=== PATIENT | female | born 2000 | race African-American/Black ===

== ENCOUNTER 2021-03-24 07:30 | Emergency (ER) | payer BC, SELFPAY ==
[2021-03-24 07:27] VITALS: BP 121/90; PULSE 69; RESP 17; TEMP 36.3; O2SAT 100
--- NOTE | 2021-03-24 07:42 | ECG_ITS ---
Measurements Intervals [place] Rate: 69 P: -5 FL: 157 QRS: 47 QRSD: 84 T: 8 QT: 414 QTc: 444 Interpretive Statements SINUS RHYTHM WITH SINUS ARRHYTHMIA INCOMPLETE RIGHT BUNDLE BRANCH BLOCK BORDERLINE ECG Electronically Signed On 03-24-2021 7:49:44 CDT by Cholo Herbert D.O.
[2021-03-24] MEDS: LORazepam INJ (*CRX) 2 MG/ML VIAL 1 MG IV PUSH (08:43)
--- NOTE | 2021-03-24 08:49 | ED.GENADULT ---
HPI - General Adult General Chief complaint: Unspecified Stated complaint: global numbness 25 minutes Time Seen by Provider: 03/24/21 08:22 Source: patient, EMS and RN notes reviewed Mode of arrival: EMS Limitations: no limitations History of Present Illness HPI narrative: Patient arrived to the ED by ambulance from work with a chief complaint of numbness all over from head to toes and spasm and cramps of the fingers with difficulty moving them and hyperventilation. Started 2-hour prior to arrival to the emergency room. Patient reports a lot of stress lately. Patient denies any fever, chills, nausea, vomiting, chest pain, shortness of breath or abdominal pain. Related Data Allergies Allergy/AdvReac Type Severity Reaction Status Date / Time No Known Allergies Allergy Verified 03/24/21 07:40 Review of Systems Review of Systems: CONSTITUTIONAL: Denies fever, chills, or sweats. EYES: Denies visual changes, redness, or discharge. ENT: Denies rhinorrhea, congestion, sore throat, or otalgia. CARDIOVASCULAR: Denies chest pain, palpitations, or edema. RESPIRATORY: Denies cough or dyspnea. GASTROINTESTINAL: Denies abdominal pain, nausea, vomiting, or diarrhea. GENITOURINARY: Denies dysuria or hematuria. SKIN: Denies rash or itching. MUSCULOSKELETAL: Denies back pain, joint pain, or myalgia. NEUROLOGIC: Denies headache, numbness, or weakness. PSYCHIATRIC: Denies anxiety or depression. Exam Narrative: General appearance: Well-developed, well-nourished Skin: Normal color Head: Normocephalic, nontraumatic Eyes: Clear conjunctiva ENT: Oropharynx normal, ears normal, nose normal Neck: Supple, nontender Chest and respiratory: Airway patent, no respiratory distress, no accessory muscle use Heart: Regular rate/rhythm Abdomen: Soft, nontender, no organomegaly, quiet bowel sounds Vascular: Normal peripheral pulses, normal capillary refill. Musculoskeletal: Mild carpopedal spasm Neurologic: Alert and oriented ?3, STAND GRINDER is normal as tested, no gross motor deficit Course Course Emergency Course: Improving Vital Signs Vital signs: Vital Signs Temperature 36.3 C L 03/24/21 07:27 Pulse Rate 69 03/24/21 07:27 Respiratory Rate 17 03/24/21 07:27 Blood Pressure 121/90 03/24/21 07:27 Pulse Oximetry 100 03/24/21 07:27 Temperature 36.3 C L 03/24/21 07:27 Pulse Rate 69 03/24/21 07:27 Respiratory Rate 17 03/24/21 07:27 Blood Pressure 121/90 03/24/21 07:27 Pulse Oximetry 100 03/24/21 07:27 Medical Decision Making MDM Narrative Medical decision making narrative: Hyperventilation syndrome IV Ativan, ordered. Patient symptoms are improving on arrival to the emergency room. Differential Diagnosis Differential Diagnosis: Hyperventilation syndrome, anxiety related syndrome Vital Signs Vital Signs: Vital Signs Temperature 36.3 C L 03/24/21 07:27 Pulse Rate 69 03/24/21 07:27 Respiratory Rate 17 03/24/21 07:27 Blood Pressure 121/90 03/24/21 07:27 Pulse Oximetry 100 03/24/21 07:27 Temperature 36.3 C L 03/24/21 07:27 Pulse Rate 69 03/24/21 07:27 Respiratory Rate 17 03/24/21 07:27 Blood Pressure 121/90 03/24/21 07:27 Pulse Oximetry 100 03/24/21 07:27 ECG Data EKG #1: Attestation: I personally reviewed and interpreted this ECG as follows: ECG completion date: 03/24/21 ECG completion time: 09:57 Interpretation: Normal sinus rhythm at 69 bpm with sinus arrhythmia, borderline EKG Critical Care Time Critical Care Time Critical Care Time: No Discharge Plan Discharge Clinical Impression: Anxiety hyperventilation Patient Disposition: Home, Self-Care Condition: Improved
[2021-03-24 10:17] VITALS: BP 112/59; PULSE 87; RESP 15; O2SAT 100
== END 2021-03-24 10:21 | disposition home or self-care (01) ==
PROVIDERS: Emergency Provider Emergency Medicine
DX: F41.9 Anxiety disorder, unspecified (principal); R06.4 Hyperventilation
CPT/HCPCS: 93005; 96374; 99284; J2060

== ENCOUNTER 2021-06-02 11:30 | Outpatient (CLI) | payer OTHER, BC, SELFPAY ==
--- NOTE | ~2021-06-02 | XR_ITS ---
XR ankle LT min 3V 06/02/2021 11:53 INDICATION: Left ankle pain PROCEDURE: 4 views left ankle COMPARISON: No prior studies for comparison. FINDINGS: Fracture, dislocation or subluxation is not identified. Ankle mortise intact. Talar dome is normal. The soft tissues appear within normal limits. No foreign bodies are identified. IMPRESSION: 1: NO ACUTE BONE OR JOINT ABNORMALITY IDENTIFIED. Reviewed, dictated and finalized at location [facility]
== END 2021-06-02 11:31 | disposition home or self-care (01) ==
PROVIDERS: PCP Emergency Medicine; Visit Provider Emergency Medicine
DX: S93.402A Sprain of unspecified ligament of left ankle, initial encounter (principal); X58.XXXA Exposure to other specified factors, initial encounter
CPT/HCPCS: 73610